=== PATIENT | male | born 1990 | race Two or more races ===

== ENCOUNTER 2017-02-15 22:02 | Emergency (ER) | payer SELFPAY ==
[~2017-02-15] VITALS: Ht 165.1 cm; Wt 81.6 kg
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
--- NOTE | 2017-02-15 22:40 | NUR ---
NEONATAL DOCTOR AT BEDSIDE FOR BLOOD DRAW.
--- NOTE | 2017-02-15 22:55 | NUR ---
RADIOLOGY AT BEDSIDE FOR RT HAND XRAY.
[2017-02-15 22:57] LABS: BASOPHILS # (AUTO) 0.1 /CMM (0.0-0.2); BASOPHILS % (AUTO) 0.5 % (0.0-2.0); EOSINOPHILS # (AUTO) 0.5 /CMM (0.0-0.7); HEMATOCRIT 51 % (39-51); HEMOGLOBIN 17.3 g/dL (13.5-17.5); LYMPHOCYTES # (AUTO) 2.8 /CMM (0.8-4.8); MEAN CORPUSCULAR HEMOGLOBIN 29 PG (26.0-33.0); MEAN CORPUSCULAR HGB CONC 34 g/dl (31.0-36.0); MEAN CORPUSCULAR VOLUME 86 fL (80-96); MONOCYTES # (AUTO) 0.4 /CMM (0.1-1.30); MONOCYTES % (AUTO) 3.3 % (2.0-12.0); NEUTROPHILS # (AUTO) 7.9 /CMM (1.8-8.9); NEUTROPHILS % (AUTO) 68.2 % (43.0-81.0); PLATELET COUNT (AUTO) 342 /CMM (150-450); RED BLOOD CELL COUNT(AUTO) 5.95 MIL/uL (4.5-6.0); WHITE BLOOD COUNT (AUTO) 11.6 K/uL (4.3-11.0)
--- NOTE | 2017-02-15 23:05 | NUR ---
PT TO RADIOLOGY FOR C SPINE AND FACIAL CT SCAN VIA [facility].
[2017-02-15 23:08] LABS: CREATININE 1.4 mg/dL (0.6-1.3); POTASSIUM 4.1 mmol/L (3.5-5.1)
[2017-02-15 23:13] LABS: ALBUMIN 4.2 g/dL (3.4-5.0); BILIRUBIN,DIRECT 0.1 mg/dL (0.0-0.2); BILIRUBIN,TOTAL 0.3 mg/dL (0.2-1.0); TOTAL PROTEIN, SERUM 7.6 g/dL (6.4-8.2)
[2017-02-15 23:15] LABS: SALICYLATE 1.2 mg/dL (2.8-20.0)
[2017-02-16 00:30] VITALS: BP 115/72
--- NOTE | 2017-02-16 00:30 | NUR ---
pt medically cleared of hard c-collar precautions by Dr. Olson, resp even & unlabored, nad noted.
--- NOTE | 2017-02-16 00:30 | NUR ---
RESTING QUIETLY WITH NO S/S OF DISTRESS AFTER EVALUATED BY ART/CAPILLA.
--- NOTE | 2017-02-16 01:02 | NUR ---
WENT TO D/C PT AND NOT FOUND IN THE ROOM. PT ELOPED AFTER PSYCH EVAL.
== END 2017-02-16 01:06 | disposition left against medical advice (07) ==
LOC: ER 22:05
DX: S13.9XXA Sprain of joints and ligaments of unspecified parts of neck, initial encounter (principal); S39.012A Strain of muscle, fascia and tendon of lower back, initial encounter; S00.83XA Contusion of other part of head, initial encounter; S60.221A Contusion of right hand, initial encounter; F10.129 Alcohol abuse with intoxication, unspecified; F32.9 Major depressive disorder, single episode, unspecified; W22.8XXA Striking against or struck by other objects, initial encounter; Y93.89 Activity, other specified; Y92.89 Other specified places as the place of occurrence of the external cause; Y99.9 Unspecified external cause status
CPT/HCPCS: 36415; 70486; 72110; 72125; 73130; 80048; 80076; 80329; 85025; 99285; A4606; G0480 ×2; Z7610; G6039-TC

== ENCOUNTER 2019-03-22 01:22 | Emergency (ER) ==
[~2019-03-22] VITALS: Ht 182.9 cm; Wt 122.5 kg
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
[2019-03-22] MEDS ORDERED: ONDANSETRON 4 MG TAB.RAPDIS ONE (01:50)
[2019-03-22] MEDS ORDERED: HYDROCODONE/APAP 10/325MG 1 EA TABLET ONE (01:50)
[2019-03-22] MEDS ORDERED: TDAP [DIPH/PERTUSSIS/TET] 0.5 ML VIAL IM ONE ×2 (01:51→02:00)
[2019-03-22] MEDS ORDERED: CEFAZOLIN 1 GM VIAL IM ONE (02:00)
[2019-03-22] MEDS ORDERED: CEPHALEXIN MONOHYDRATE 500 MG CAPSULE PO ONE ×2 (02:00→02:01)
[2019-03-22] MEDS ORDERED: HYDROCODONE/APAP 10/325MG 1 EA TABLET PO ONE (02:00)
[2019-03-22] MEDS ORDERED: ONDANSETRON 4 MG TAB.RAPDIS SL ONE (02:00)
--- NOTE | 2019-03-22 02:00 | NUR ---
OFFICERS FROM [facility] AT THE BED SIDE.
--- NOTE | 2019-03-22 02:15 | NUR ---
Patient is resting in bed . reported less pain . will cont to monitor
--- NOTE | 2019-03-22 03:03 | NUR ---
Patient is resting comfortably in bed with eyes closed. Easily aroused. lef hand soaking in ns+ iodine solution.
[2019-03-22] MEDS ORDERED: LIDOCAINE HCL/MPF 1% 30 ML VIAL IJ ONE (03:07)
[2019-03-22] MEDS ORDERED: LIDOCAINE 1% INJ 50 ML MDV IJ ONE (03:30)
--- NOTE | 2019-03-22 04:18 | NUR ---
MAC called for higher level of care.
[2019-03-22] MEDS ORDERED: CLINDAMYCIN 600 MG in IV D5W 100 ML IV ONE (05:00)
[2019-03-22 05:02] LABS: BASOPHILS # (AUTO) 0.1 /CMM (0.0-0.2); BASOPHILS % (AUTO) 0.5 % (0.0-2.0); EOSINOPHILS % (AUTO) 0.8 % (0.0-6.0); HEMATOCRIT 47 % (39-51); HEMOGLOBIN 15.9 g/dL (13.5-17.5); LYMPHOCYTES % (AUTO) 12.3 % (20.0-44.0); MEAN CORPUSCULAR HGB CONC 34 g/dl (31.0-36.0); MEAN CORPUSCULAR VOLUME 88 fL (80-96); MONOCYTES # (AUTO) 0.8 /CMM (0.1-1.30); MONOCYTES % (AUTO) 5.1 % (2.0-12.0); NEUTROPHILS # (AUTO) 13.1 /CMM (1.8-8.9); NEUTROPHILS % (AUTO) 81.3 % (43.0-81.0); PLATELET COUNT (AUTO) 290 /CMM (150-450)
[2019-03-22] MEDS ORDERED: CLINDAMYCIN 900 MG/6 ML VIAL ONE (05:03)
[2019-03-22 05:10] LABS: CALCIUM, SERUM 8.6 mg/dL (8.5-10.1); POTASSIUM 3.8 mmol/L (3.5-5.1)
--- NOTE | 2019-03-22 06:18 | NUR ---
Patient is resting comfortably in bed with eyes closed. Easily aroused. VSS
--- NOTE | 2019-03-22 06:48 | NUR ---
Call from [facility]. Pt accepted to [facility] by dr Carty. # for report [phone]. [facility]#[id number]
--- NOTE | 2019-03-22 06:51 | NUR ---
[facility] called for [facility] transport. ETA [id number]. Trip [id number]
--- NOTE | 2019-03-22 07:28 | NUR ---
CALLED [facility] FOR REPORT WITH NO RESPONSE. WILL ENDORSE TO AM SHIFT FOR DEANN AND TO F/U
--- NOTE | 2019-03-22 08:23 | NUR ---
CALLED [facility] FOR REPORT, NO ANSWER.
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
[2019-03-22 10:38] VITALS: BP 135/72
== END 2019-03-22 10:44 | disposition short-term general hospital (02) ==
LOC: ER 01:27
DX: S66.822A Laceration of other specified muscles, fascia and tendons at wrist and hand level, left hand, initial encounter (principal); S61.215A Laceration without foreign body of left ring finger without damage to nail, initial encounter; F17.200 Nicotine dependence, unspecified, uncomplicated; F10.10 Alcohol abuse, uncomplicated; Y90.0 Blood alcohol level of less than 20 mg/100 ml; X58.XXXA Exposure to other specified factors, initial encounter; Y93.89 Activity, other specified; Y92.89 Other specified places as the place of occurrence of the external cause; Y99.8 Other external cause status
CPT/HCPCS: 12001; 36415; 73130; 80048; 80307; 85025; 90471; 90715; 96365; 99285; A6402; A6403; J3490 ×2; J7060 ×2; Q0162; G0480; J0690